=== PATIENT | female | born 1990 | race African-American/Black ===

== ENCOUNTER 2021-01-30 08:18 | Emergency (ER) | payer MEDICAID ==
[~2021-01-30] VITALS: Ht 162.6 cm; Wt 95.5 kg
[~2021-01-30 08:18] MED LIST: NOCURR
[2021-01-30] MEDS ORDERED: ACETAMINOPHEN 500 MG TABLET PO ONE (09:45)
[2021-01-30] MEDS ORDERED: SODIUM CHLORIDE 0.9% 2,850 ML IV ONE (09:45)
[2021-01-30] MEDS ORDERED: 0.9% SODIUM CHLORIDE 10 ML SYRINGE IVP PRN (09:45)
[2021-01-30 10:50] LABS: BASOPHILS % (AUTO) 0.9 % (0.0-2.0); EOSINOPHILS % (AUTO) 0.1 % (1.0-6.0); HEMATOCRIT 44.5 % (36-46); HEMOGLOBIN 14.5 g/dL (12.0-16.0); LYMPHOCYTES # (AUTO) 1.1 K/uL (1.0-4.8); LYMPHOCYTES % (AUTO) 24.9 % (22.0-44.0); MEAN CORPUSCULAR HEMOGLOBIN 26.7 pg (26.0-34.0); MEAN CORPUSCULAR HGB CONC 32.5 G/dL (31.0-37.0); MEAN CORPUSCULAR VOLUME 82 fL (80-100); MONOCYTES # (AUTO) 0.7 K/uL (0.1-1.0); NEUTROPHILS # (AUTO) 2.5 K/uL (1.8-7.7); NEUTROPHILS % (AUTO) 58.1 % (40.0-70.0); PLATELET COUNT (AUTO) 247 K/uL (150-450); RED CELL DISTRIBUTION WIDTH 14.7 % (11.5-14.5)
[2021-01-30] MEDS ORDERED: CefTRIAXone 1 GM/DEXTROSE 50 ML IV ONE (11:00)
[2021-01-30] MEDS ORDERED: AZITHROMYCIN 500 MG/NS 250 ML IV ONE (11:00)
[2021-01-30 11:02] LABS: PROTHROMBIN TIME 11.1 SEC (9.4-11.6)
[2021-01-30 11:09] LABS: COVID AG,FIA SOURCE NASOPHARYNGEAL
[2021-01-30 11:14] LABS: LACTIC ACID 1.1 mmol/L (0.4-2.0)
[2021-01-30 11:33] LABS: ANION GAP 9 mmol/L (8-16); CALCIUM, TOTAL 8.2 mg/dL (8.8-10.5); CARBON DIOXIDE 25 mmol/L (22-29); CHLORIDE 98 mmol/L (98-107); CREATININE 0.88 mg/dL (0.60-1.30); GLOMERULAR FILTR. RATE CALC > 60 mL/min (>60); GLUCOSE,RANDOM 88 mg/dL (70-110); SODIUM SERUM 132 mmol/L (136-145); UREA NITROGEN, BLOOD 6 mg/dL (7-18)
[2021-01-30 11:34] LABS: RAPID GROUP A STREP NEGATIVE (NEGATIVE)
[2021-01-30 11:38] LABS: ALANINE AMINOTRANSFERASE 25 U/L (12-78); ALBUMIN 3.7 g/dL (3.4-5.0); ALKALINE PHOSPHATASE 70 U/L (46-116); ASPARTATE AMINOTRANSFERASE 25 U/L (15-37); BILIRUBIN,TOTAL 0.3 mg/dL (0.1-1.0); TOTAL PROTEIN, SERUM 8.2 g/dL (6.4-8.2)
[2021-01-30 11:45] LABS: INFLUENZA TYPE A NEGATIVE FOR TYPE A (NEGATIVE); INFLUENZA TYPE B NEGATIVE FOR TYPE B (NEGATIVE)
[2021-01-30] MEDS ORDERED: IBUPROFEN 600 MG TABLET PO ONE (12:15)
[2021-01-30 13:16] VITALS: BP 124/80
[2021-01-30 14:04] LABS: HCG,QUANTITATIVE < 1 mIU/mL (0-6)
== END 2021-01-30 13:19 | disposition home or self-care (01) ==
LOC: EMS 08:21
DX: U07.1 COVID-19 (principal); J12.82 Pneumonia due to coronavirus disease 2019
CPT/HCPCS: 36415; 71045; 80053; 83605; 84145; 84484; 84702; 85025; 85610; 87040; 87426; 87430; 87804; 93005; 96361; 96365; 96366; 96368; 99285; J0456; J0696; J7030; U0003

== ENCOUNTER 2021-02-02 18:29 | Emergency (ER) | payer MEDICAID ==
[~2021-02-02] VITALS: Ht 162.6 cm; Wt 95.0 kg
[2021-02-02] MEDS ORDERED: ACETAMINOPHEN 500 MG TABLET PO ONE (19:15)
[2021-02-02 21:31] VITALS: BP 119/79
== END 2021-02-02 20:09 | disposition home or self-care (01) ==
LOC: EMS 18:29
DX: U07.1 COVID-19 (principal); J12.82 Pneumonia due to coronavirus disease 2019
CPT/HCPCS: 71045; 99283